=== PATIENT | male | born 1985 | race Native Hawaiian/Other Pacific Islander ===

== ENCOUNTER 2017-08-15 22:25 | Emergency (ER) | payer OTHER ==
[~2017-08-15] VITALS: Ht 190.5 cm; Wt 106.6 kg
[2017-08-15 22:34] VITALS: BP 135/84; TEMP 98.1
== END 2017-08-15 22:52 | disposition home or self-care (01) ==
LOC: ED 22:25
DX: M25.512 Pain in left shoulder (principal); M54.2 Cervicalgia
CPT/HCPCS: 99281

== ENCOUNTER 2019-05-12 13:16 | Inpatient (IN) | payer OTHER ==
[~2019-05-12] VITALS: Ht 190.5 cm; Wt 106.1 kg
[2019-05-12] VITALS (9 sets, daily range): BP systolic 133–169; BP diastolic 76–94; TEMP 98.3–101; Ht 190.5 cm; Wt 106.1 kg
[2019-05-12 13:52] LABS: PLATELET COUNT 521 K/uL (142-355)
[2019-05-12 14:14] LABS: POTASSIUM 3.6 mmol/L (3.6-5.2); SODIUM 128 mmol/L (136-145)
[2019-05-12 21:41] LABS: POTASSIUM 3.9 mmol/L (3.6-5.2)
[2019-05-13] VITALS (23 sets, daily range): BP systolic 102–157; BP diastolic 46–88; TEMP 97.5–99.1
[2019-05-13 05:46] LABS: PLATELET COUNT 357 K/uL (142-355)
[2019-05-13 06:40] LABS: POTASSIUM 3.7 mmol/L (3.6-5.2); SODIUM 134 mmol/L (136-145)
[2019-05-14] VITALS (11 sets, daily range): BP systolic 121–149; BP diastolic 68–93; TEMP 98.3–98.8
== END 2019-05-14 13:42 | disposition home or self-care (01) | DRG 897 ==
LOC: ED 13:16 → ICU 18:50
PROVIDERS: Family Medicine; ADMIT Family Medicine
DX: F15.151 Other stimulant abuse with stimulant-induced psychotic disorder with hallucinations (principal); M62.82 Rhabdomyolysis; E87.1 Hypo-osmolality and hyponatremia; E87.2 Acidosis; D72.828 Other elevated white blood cell count; K13.79 Other lesions of oral mucosa
CPT/HCPCS: 36415; 80053; 80307; 80320; 80329; 81000; 82550; 82553; 84484; 85027; 93005; 96360; 96361; 96372; 96374; 96375; 96376; 99285; J1200; J1630; J2060; J2930; J3486

== ENCOUNTER 2019-05-18 14:33 | Outpatient (CLI) | payer OTHER ==
[2019-05-18 15:11] LABS: POTASSIUM 3.9 mmol/L (3.6-5.2)
== END 2019-05-18 23:43 | disposition home or self-care (01) ==
LOC: LABW 14:33
PROVIDERS: Family Medicine
DX: E87.1 Hypo-osmolality and hyponatremia (principal)
CPT/HCPCS: 36415; 80048; 82550